=== PATIENT | female | born 1940 | race Asian ===

== ENCOUNTER 2016-04-18 11:33 | Emergency (ER) | payer OTHER ==
[~2016-04-18] VITALS: Ht 152.4 cm; Wt 54.4 kg
[2016-04-18 11:39] VITALS: BP 150/80
[2016-04-18] MEDS ORDERED: NKM (11:41)
[2016-04-18] MEDS ORDERED: Norco 5mg/325mg tab ORAL ONE (12:00)
[2016-04-18] MEDS ORDERED: Bupivacaine 0.5% Inj 30 ml vial INJ ONE (12:15)
[2016-04-18] MEDS ORDERED: TRAMADOL HCL50 MG ORAL (12:59)
--- NOTE | 2016-04-18 13:18 | Emergency Room Report ---
History of Present Illness General Chief Complaint: Upper Extremity Injury Source: Patient Present Illness HPI Patient is a 75-year-old female who presented after a fall. The patient reported slipping and landing onto her left wrist. Patient is right-hand dominant. The patient reported having increased pain to the left wrist and forearm. Patient denied hitting her head. She denied loss of consciousness. She denied any low back pain. Patient reported having some mild pain to her right buttock. The patient been ambulatory after the accident. Allergies: Coded Allergies: No Known Allergies (Unverified , 04/18/16) Patient History Past Medical History: see triage record Reviewed Nursing Documentation: PMH: Agreed, PSxH: Agreed Nursing Documentation-PMH Past Medical History: No Stated History Review of Systems All Other Systems: negative except mentioned in HPI Physical Exam Vital Signs Date Time Temp Pulse Resp B/P Pulse Ox O2 Delivery O2 Flow Rate FiO2 04/18/16 11:31 97.5 82 16 150/80 98 Room Air Sp02 EP Interpretation: reviewed, normal General Appearance: normal inspection, well appearing, no apparent distress, alert, GCS 15 Head: atraumatic ENT: normal ENT inspection, hearing grossly normal, normal voice Neck: normal inspection, full range of motion, supple, no bony tend Respiratory: normal inspection, lungs clear, normal breath sounds, no respiratory distress, no retraction, no wheezing Cardiovascular #1: regular rate, rhythm, no edema Gastrointestinal: normal inspection, normal bowel sounds, non tender, soft, no guarding, no hernia Genitourinary: no CVA tenderness Musculoskeletal: back normal, other - deformity to left wrist Neurologic: normal inspection, alert, oriented x3, responsive, 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 Differential diagnoses included was not limited to fracture, dislocation, sprain among others. X-ray imaging of the left wrist 3 views interpreted by me showed a displaced distal radius fracture. The patient was prepped with Betadine. a hematoma block was performed with 10 mL of Marcaine. Fracture was reduced with axial traction. Patient was placed in a splint. Patient was neurovascularly intact after splint. The patient was advised that she would need followup with orthopedics. Patient was given prescription for pain medication. Patient was advised that she would explain changed the cast within the next 3 days. Patient was advised on splint care Last Vital Signs Date Time Temp Pulse Resp B/P Pulse Ox O2 Delivery O2 Flow Rate FiO2 04/18/16 11:39 97.5 16 150/80 98 Room Air 04/18/16 11:31 82 Status: improved Disposition: HOME, SELF-CARE Condition: Stable Scripts Tramadol Hcl* (ULTRAM*) 50 Mg Tablet 50 MG ORAL Q6H Y for For Pain, #20 TAB 0 Refills Prov: Ervin Freire 04/18/16 Referrals: [facility]/,REFERRING (PCP) Patient Instructions: Wrist Fracture, [id number] Ervin Freire Apr 18, 2016 13:18
[2016-04-18 13:48] VITALS: BP 166/61
--- NOTE | 2016-04-18 14:08 | Diagnostic Imaging Report ---
Indications: PAIN Technique: Two views of the left forearm Comparison: None Findings: There is a fracture of the distal radius. This is posteriorly displaced by one bone width, slightly angulated, and overriding. No definite associated ulnar fracture. Impression: Positive for distal radial fracture Findings discussed by phone with Dr. Freire in the emergency room at the time of interpretation.
--- NOTE | 2016-04-18 16:00 | Diagnostic Imaging Report ---
Indications: PAIN Technique: Two views of the left forearm Comparison: One hour earlier Findings: Overlying splint obscures bony detail. Interval closed reduction of previously demonstrated displaced distal radial fracture, demonstrating markedly improved anatomic alignment. Impression: Left distal radial fracture, in plaster, status post closed reduction
== END 2016-04-18 13:50 | disposition home or self-care (01) ==
LOC: EDBD 11:33 → EMR 12:00
DX: S52.502A Unspecified fracture of the lower end of left radius, initial encounter for closed fracture (principal); W01.0XXA Fall on same level from slipping, tripping and stumbling without subsequent striking against object, initial encounter; Y92.9 Unspecified place or not applicable; Y99.8 Other external cause status
CPT/HCPCS: 25605; 29125; 73090; 99284; J3490